=== PATIENT | female | born 1980 | race African-American/Black ===

== ENCOUNTER 2019-05-26 12:48 | Outpatient (CLI) | payer MEDICAID ==
--- NOTE | 2019-05-26 14:56 | MRI ---
MRI LUMBAR SPINE WITHOUT CONTRAST: INDICATION: History of lumbar spinal injury with low back pain and radiation into the right lower extremity. COMPARISON: None. FINDINGS: There is diffuse intermediate to low signal intensity involving the bone marrow of the lumbosacral sp ine on the T1 images which can be seen in patients who are obese, smokers, or in patients with chroni c anemia. There is partial visualization of a multifibroid uterus. The conus is seen to terminate a t approximately L1. No acute fracture is demonstrated. There is loss of the normal disk signal and height at L3-4 and L4 -5. At L5-S1, there is a mild broad-based bulge and facet joint degenerative change with mild encroachmen t on the neural foramina, but no definite impingement of the exiting nerves. At L4-5, there is a broad-based bulge with facet hypertrophy inducing mild bilateral neural foraminal narrowing. At L3-4, there is a broad-based bulge with facet hypertrophy inducing mild neural foraminal encroachm ent without impingement. At L2-3, there is no appreciable central canal or neural foraminal narrowing. At L1-L2, there is no appreciable central canal or neural foraminal narrowing. At T12-L1, there is no appreciable central canal or neural foraminal narrowing. IMPRESSION: 1. Mild spondylosis of the lumbar spine with mild neural foraminal narrowing at L3-4 through L5-S1. 2. Diffuse intermediate T1 signal abnormality involving the bone marrow of the lumbosacral spine can be seen in chronic anemic states. Recommend correlation with clinical examination and CBC. This al so can be seen in patients who are smokers and who are obese. 3. Fibroid uterus partially imaged. POS: OFF
== END 2019-05-26 12:49 | disposition home or self-care (01) ==
LOC: SCSMRI 12:48
PROVIDERS: ATTEND Neurological Surgery
DX: M47.26 Other spondylosis with radiculopathy, lumbar region (principal); M47.27 Other spondylosis with radiculopathy, lumbosacral region; M48.061 Spinal stenosis, lumbar region without neurogenic claudication; M48.07 Spinal stenosis, lumbosacral region; D25.9 Leiomyoma of uterus, unspecified
CPT/HCPCS: 72148

== ENCOUNTER 2020-08-15 06:39 | Outpatient (CLI) | payer OTHER ==
[2020-08-15 17:28] LABS: BHCG - Serum Negative (NEGATIVE); Pregs Control Background? CLEAR/WHITE (CLR/WHITE); Pregs Control Bar Appear? YES (CONTROL BAR)
== END 2020-08-15 06:40 | disposition home or self-care (01) ==
LOC: LABBT 06:39
PROVIDERS: ATTEND Obstetrics & Gynecology
DX: Z01.812 Encounter for preprocedural laboratory examination (principal); D25.9 Leiomyoma of uterus, unspecified; N92.0 Excessive and frequent menstruation with regular cycle
CPT/HCPCS: 84703

== ENCOUNTER 2020-08-20 06:00 | Day surgery (SDC) | payer OTHER ==
[2020-08-15 15:59] LABS: Hemoglobin 10.4 g/dL (12.0-16.0); Mean Corpuscular HGB CONC 29.2 G/DL (32.0-36.0); Mean Corpuscular Hemoglobin 21.7 PG (27.0-33.0); Mean Corpuscular Volume 74.2 fl (80.0-100.0); Mean Platelet Volume 10.9 fl (7.4-10.4); Platelet Count 360 10x3/uL (130-400); RBC Distribution Width 16.7 % (11.5-14.5); White Blood Cell (WBC) Count 5.5 10x3/uL (4.5-11.0)
[2020-08-16 03:13] LABS: SARS-CoV-2 MS2 Positive; SARS-CoV-2 N Gene Negative; SARS-CoV-2 S Gene Negative; SARS-CoV-2 by NAA Not Detected (NotDetected); SARS-CoV-2 orf1ab Negative
--- NOTE | 2020-08-16 11:31 | HP ---
REASON FOR ADMISSION: Menorrhagia, anemia, and fibroid. SCHEDULED PROCEDURE: Total laparoscopic hysterectomy with bilateral salpingectomy with ExCITE procedure extracorporeal morcellation. HISTORY OF PRESENT ILLNESS: Ms. Gutierrez is a 40-year-old 1, para 1, status post x1, status post prior myomectomy 14 years ago, who presents with a long history of menorrhagia and approximately 500 mL multi-leiomyomatous uterus. She desires definitive surgical management. 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 No history of dysplasia or STDs. Bleeds heavy for 5 to 7 days a month. MEDICAL HISTORY: Significant for hypertension and anemia. SURGICAL HISTORY: Myomectomy. ALLERGIES: SHELLFISH. MEDICATIONS: 1. Cetirizine. 2. Ibuprofen. 3. Iron. 4. Medroxyprogesterone. 5. TXA. SOCIAL HISTORY: The patient is an everyday smoker, half a pack per day. Denies IV drug or alcohol abuse. FAMILY HISTORY: Noncontributory. REVIEW OF SYSTEMS: Noncontributory. PHYSICAL EXAMINATION: GENERAL: Black female. 5 feet 4 inches, 190, BMI 32.6. VITAL SIGNS: Blood pressure 124/80, pulse 77, respirations 18. HEENT: Within normal limits. LUNGS: Clear to auscultation bilaterally. HEART: Regular rate and rhythm. BREASTS: No masses bilaterally. ABDOMEN: Soft and nontender. No rebound or guarding. PELVIC: Vulva without lesions. Vagina without discharge. Cervix, parous. Uterus; anteverted, 10 to 12 week size, irregular. EXTREMITIES: No clubbing, cyanosis, or edema. LABORATORY DATA: Ultrasound as noted in the HPI. Pathology, EMB performed which was benign with scant superficial stripes of weakened proliferative endometrium. IMPRESSION: Multiple leiomyomatous uterus with menorrhagia, status post myomectomy 14 years ago, desires definitive surgical management. PLAN: We will proceed with total laparoscopic hysterectomy, bilateral salpingectomy, extracorporeal uterine morcellation with ExCITE procedure. The patient understands risks and benefits of procedure including bleeding, infection, damage to pelvic organs, and postoperative hernia. We will administer appropriate antibiotic and DVT prophylaxis. Job ID: [id number]
[2020-08-19 14:20] VITALS: BMI 32.4
[2020-08-20] MEDS ORDERED: CeleCOXIB 100 MG CAP ONE (06:19)
[2020-08-20] MEDS ORDERED: Gabapentin 300 MG CAP ONE (06:19)
[2020-08-20] MEDS ORDERED: Famotidine/PF 20 mg/2ml Vial ONE (06:19)
[2020-08-20] MEDS ORDERED: Bupivacaine PF 0.5% 30 ML VIAL ONE (06:26)
[2020-08-20] MEDS ORDERED: Lidocaine 1% w/Epinephrine 1:100K 20 ML VIAL ONE (06:26)
[2020-08-20] MEDS ORDERED: SUGAMMADEX SODIUM 200 MG/2 ML VIAL ONE (06:56)
[2020-08-20] MEDS ORDERED: Fentanyl 250 MCG/5 ML VIAL ONE (06:56)
[2020-08-20] MEDS ORDERED: Midazolam HCl 2 mg/2 ml Vial ONE (07:14)
[2020-08-20] MEDS ORDERED: Promethazine HCl 25 MG/ML VIAL IM PRN ×2 (09:34→09:44)
[2020-08-20] MEDS ORDERED: Meperidine HCl/PF 25 MG/ML VIAL SLOW IVP PRN (09:34)
[2020-08-20] MEDS ORDERED: Promethazine HCl 25 MG/ML VIAL SLOW IVP PRN (09:34)
[2020-08-20] MEDS ORDERED: Ondansetron HCl/PF 4 MG/2 ML Vial IVP PRN (09:34)
[2020-08-20] MEDS ORDERED: Ondansetron PF 4 MG/2 ML Vial IVP PRN (09:44)
[2020-08-20] MEDS ORDERED: diphenhydrAMINE 25 MG CAP PO PRN (09:44)
[2020-08-20] MEDS ORDERED: Zolpidem Tartrate 5 MG TAB PO PRN (09:44)
[2020-08-20] MEDS ORDERED: HYDROcodone/Acetaminophen 5/325 mg Tablet PO PRN (09:44)
[2020-08-20] MEDS ORDERED: Bisacodyl 10 MG SUPP PR PRN (09:44)
[2020-08-20] MEDS ORDERED: Morphine 4 MG/ML VIAL SLOW IVP PRN (09:44)
[2020-08-20] MEDS ORDERED: Morphine 2 MG/ML VIAL SLOW IVP PRN (09:44)
[2020-08-20] MEDS ORDERED: traMADol HCl 50 MG TAB PO PRN (09:44)
[2020-08-20] MEDS ORDERED: Dexamethasone 20 MG/5 ML VIAL ONE (09:53)
[2020-08-20] MEDS ORDERED: PROPOFOL 200 MG/20 ML VIAL ONE (09:53)
[2020-08-20] MEDS ORDERED: Ondansetron PF 4 MG/2 ML Vial ONE (09:53)
[2020-08-20] MEDS ORDERED: Lidocaine 1% PF 5 ML VIAL ONE (09:53)
[2020-08-20] MEDS ORDERED: Glycopyrrolate 0.2 MG/ML 5 ML SYRINGE ONE (09:53)
[2020-08-20] MEDS ORDERED: Rocuronium Bromide 10 MG/ML (10ML VIAL) ONE (09:53)
[2020-08-20] MEDS ORDERED: Albuterol Sulfate 2.5 mg/3 ml Neb NEB PRN (09:58)
[2020-08-20] MEDS ORDERED: Fentanyl 100 MCG/2 ML VIAL ONE (10:18)
[2020-08-20] MEDS ORDERED: Meperidine HCl/PF 25 MG/ML VIAL ONE (11:27)
[2020-08-20] MEDS: Sodium Chloride 0.9% 1,000 ML IV SCH ×2 (12:49→18:42)
[2020-08-20] MEDS: HYDROcodone/Acetaminophen 5/325 mg Tablet PO PRN ×3 (12:55→21:09)
--- NOTE | 2020-08-20 14:00 | OP ---
DATE OF PROCEDURE: 08/20/2020 PREOPERATIVE DIAGNOSES: Fibroids, menorrhagia, pelvic pain. POSTOPERATIVE DIAGNOSES: Fibroids, menorrhagia, pelvic pain, extensive adhesive disease of the left ovary to the uterus and invasion of the right broad ligament with fibroids. PROCEDURES PERFORMED: Total laparoscopic hysterectomy with left salpingo-oophorectomy, right salpingectomy, lysis of adhesions and extracorporeal morcellation with ExCITE procedure. MANAGER TELEMARKETING: DARRYL Pringle ANESTHESIA: General endotracheal. ESTIMATED BLOOD LOSS: Less than 100 mL. COMPLICATIONS: None. DRAINS: Clark to gravity. FINDINGS: 1. Approximately 500 to 650 g uterus with multiple leiomyoma uteri. 2. Dense adhesions of the left tube and ovary to the uterus. 3. Hemostasis, clear urine, counts correct during the procedure. 4. Ureters identified bilaterally noted to be well lateral to the surgical field. DISPOSITION: Recovery room, then to floor for observation overnight. DESCRIPTION OF PROCEDURE: After obtaining appropriate operative consent, the patient was taken to the operating room where general endotracheal anesthesia achieved without difficulty. The patient was prepped and draped in dorsal lithotomy position with Felipe stirrups. Sliding speculum placed in vagina. Cervix identified, grasped with single-toothed tenaculum. Uterus sounded to 11 cm, DIANA manipulator with a 3.5 cm cervical lockstitch hemmer and 10 cm obturator was placed without difficulty. Clark catheter placed. Certified Athletic Trainer changed his gloves and turned attention to abdominal portion of the procedure. A 5 mL of Marcaine injected superior to the umbilicus approximately 3 cm. A 2.5 cm skin incision was made and dissection was carried down to the fascia. The fascia was elevated and Veress needle placed inside the abdominal cavity. Insufflation was carried out with carbon dioxide at max pressure of 15, volume approximately 3 L. A 12 mm non-cutting Lorie trocar was placed without difficulty and confirmation entry into the peritoneal cavity was noted. The patient was placed in steep Trendelenburg position and the right and left lateral trocars with da Deanna were lateral to the epigastric vessels and the review assistant port in the right upper quadrant 11 mm. The 12 mm trocar was removed. The fascial incision was extended to 2.5 cm. The small Иван O placed inside and the GelPOINT port placed over this. After placing a retrieval bag in the abdomen, da Deanna was docked with monopolar scissors in the right hand and bipolar fenestrated forceps in the left. Findings as noted in the operative findings were noted. Because of the adhesions on the left, decision to take that ovary was made and the infundibulopelvic ligament was coagulated, transected, and then through the broad, round, and down to the level of the internal cervical os. Distortion from the fibroids was noted. Vesicouterine peritoneum incised sharply and dissected off the lower uterine segment cervix and upper vagina, dissecting the bladder off. The bladder was backfilled several times to assure its location and to avoid injury. Skeletonization of the uterine vessels on the left was carried out and these were coagulated and transected. Attention was turned to the right. On this side, the fallopian tube was excised. The right ovary was also noted to be quite adherent to the uterus, but was taken down in a blunt and sharp manner. The fibroids were noted to be out into the broad ligament. On this side, it was opened up, ureter identified, noted to be dissected following well away from the uterus, coagulated and transected through the broad, the round, and down to the level internal cervical os, finishing up the vesicouterine peritoneal incision and dissecting the bladder off all the cervix and upper vagina. Skeletonization of the uterine vessels carried out, these were coagulated and transected. Once this was accomplished, the vagina was entered anteriorly at 12 o'clock, extended from 12 to 3 and 12 to 9, 3 to 6 and 9 to 6 and amputating the specimen, was taken off the DIANA manipulator and placed in the upper vagina for retrieval later. The vaginal cuff was closed using a running continuous PDS Stratafix from right to left and then back to right in usual manner. Suction irrigation was carried out. Tisseel was placed across all the surgical ortiz. Good hemostasis was noted. Retrieval bag was pulled into the pelvis and the sutures on it were cut. This specimen was placed inside. It was pulled out through the GelPOINT intervention. Instruments were removed, the da Deanna undocked. The patient levelled and extracorporeal morcellation carried out with the ExCITE procedure in the usual manner, taking care to avoid trauma to the underlying viscera. This specimen was completely morcellated and removed. The small Иван O was removed. Fascia was identified and closed using a running continuous 0 Vicryl suture. All trocars had been removed and the skin was reapproximated x4 using 4-0 Monocryl and Dermabond. Sponge stick was placed in the vagina. Vagina is noted to be dry and the patient was awakened and extubated to recovery room in good condition. Job ID: [id number]
[2020-08-20] MEDS: Labetalol 100 MG TAB PO SCH (14:29)
[2020-08-20] MEDS: Simethicone Chewable 80 MG TAB PO PRN (17:05)
[2020-08-20] MEDS: Ibuprofen 800 MG TAB PO SCH ×2 (18:42→21:08)
[2020-08-20] MEDS ORDERED: cloNIDine 0.2 MG TAB PO PRN (19:08)
[2020-08-20] MEDS ORDERED: Gabapentin 300 MG CAP PO SCH (21:00)
[2020-08-21] MEDS: Sodium Chloride 0.9% 1,000 ML IV SCH (01:13)
[2020-08-21] MEDS: Simethicone Chewable 80 MG TAB PO PRN ×2 (01:17→08:49)
[2020-08-21] MEDS: HYDROcodone/Acetaminophen 5/325 mg Tablet PO PRN ×3 (01:17→09:24)
[2020-08-21 05:12] VITALS: TEMP 98.2
[2020-08-21] MEDS ORDERED: Ibuprofen 800 MG TAB PO SCH (06:00)
[2020-08-21 06:12] LABS: Hemoglobin 9.5 g/dL (12.0-16.0); Mean Corpuscular HGB CONC 31.4 g/dL (32.0-36.0); Mean Corpuscular Hemoglobin 23.8 pg (27.0-31.0); Mean Corpuscular Volume 75.8 fL (78.0-98.0); Platelet Count 251 thou/uL (130-400); RBC Distribution Width 15.8 % (11.5-14.5); Red Blood Cell (RBC) Count 4.01 mill/uL (4.20-5.40)
[2020-08-21 08:16] VITALS: BP 129/80
--- NOTE | 2020-08-21 08:30 | DIS ---
DATE OF ADMISSION: 08/20/2020 DATE OF DISCHARGE: 08/21/2020 PRINCIPAL AND HOSPITAL PROCEDURES: Total laparoscopic hysterectomy, left salpingo-oophorectomy, right salpingectomy. SUMMARY OF HOSPITAL COURSE: The patient underwent the aforementioned surgery at 0730 hours on 08/20. EBL was 100 mL. Hematocrit went from immediate postoperative. The patient had some moderate hypertension, which was resolved with clonidine and labetalol. She has a history of hypertension in the past, but not on medications. Over time, her blood pressures have been within normal limits. The patient will not be discharged home on any antihypertensives. She will follow up with her primary care physician. Pathology is pending. PHYSICAL EXAMINATION: VITAL SIGNS: Temperature 98.2, pulse 78, respirations 18, blood pressure 116/65. HEENT: Within normal limits. LUNGS: Clear to auscultation bilaterally. ABDOMEN: Soft, nontender, nondistended. Incision is intact and dry. Perineum dry. EXTREMITIES: No clubbing, cyanosis, or edema. IMPRESSION: Doing well, status post TLH. PLAN: Discharge home with routine postoperative followup. Dewey and ibuprofen sent from office. Followup scheduled already at 2 and 6 weeks at [facility] [place]. Job ID: [id number]
[2020-08-21] MEDS: Labetalol 100 MG TAB PO SCH (08:49)
== END 2020-08-21 11:00 | disposition home or self-care (01) ==
LOC: SDC 06:00 → 3SW 12:48 → SDC 08-21 11:00
PROVIDERS: ATTEND Obstetrics & Gynecology
PROC: 0UT14ZZ Resection of Left Ovary, Percutaneous Endoscopic Approach (ICD-10-PCS; principal; 2020-08-20)
PROC: 0UT94ZZ Resection of Uterus, Percutaneous Endoscopic Approach (ICD-10-PCS; principal; 2020-08-20)
PROC: 0UT74ZZ Resection of Bilateral Fallopian Tubes, Percutaneous Endoscopic Approach (ICD-10-PCS; principal; 2020-08-20)
DX: D25.2 Subserosal leiomyoma of uterus (principal); N72 Inflammatory disease of cervix uteri; N87.9 Dysplasia of cervix uteri, unspecified; I10 Essential (primary) hypertension; D64.9 Anemia, unspecified; F17.220 Nicotine dependence, chewing tobacco, uncomplicated; Z91.013 Allergy to seafood
CPT/HCPCS: 36415; 85027; 86850; 86900; 86901; 87635; 88307; 93005; 93010; J0690; J1100; J2175; J2250; J2405; J2704; J3010; S0020; S0028; U0003